=== PATIENT | female | born 1990 | race African-American/Black ===

== ENCOUNTER 2023-07-15 09:59 | Emergency (ER) | payer OTHER ==
[~2023-07-15] VITALS: Ht 152.4 cm; Wt 61.2 kg
[2023-07-15] MEDS ORDERED: KETOROLAC TROMETHAMINE 60 MG VIAL IM STA (11:17)
[2023-07-15] MEDS ORDERED: TRIAMCINOLONE ACETONIDE 40 MG/ML VIAL IJ STA (11:19)
== END 2023-07-15 12:25 | disposition home or self-care (01) ==
LOC: ER 09:59
DX: M77.11 Lateral epicondylitis, right elbow (principal)